=== PATIENT | female | born 1975 | race Caucasian/White ===

== ENCOUNTER 2016-04-23 12:04 | Outpatient (CLI) | payer OTHER ==
[~2016-04-23] VITALS: Ht 175.3 cm; Wt 119.5 kg
[2016-04-23 12:35] VITALS: Ht 175.3 cm; Wt 119.5 kg
[2016-04-23] MEDS ORDERED: METO10TA96 PO (12:35)
[2016-04-23] MEDS ORDERED: DOXY25TA44 PO (12:35)
[2016-04-23] MEDS ORDERED: RANI150T9 PO (12:35)
[2016-04-23] MEDS ORDERED: PRENAT PO (12:35)
[2016-04-23] MEDS ORDERED: ASPI81TA3 PO (12:35)
[2016-04-23 12:39] LABS: BASOPHILS % 0.3 % (0.0-2.0); EOSINOPHILS # 0.1 10^3/ul (0.0-0.5); EOSINOPHILS % 0.4 % (0.0-7.0); HEMATOCRIT 34.8 % (37.0-47.0); HEMOGLOBIN 12.2 g/dl (12.0-16.0); LYMPHOCYTES # 2.2 10^3/ul (0.8-2.9); LYMPHOCYTES % 15.9 % (15.0-51.0); MEAN CORPUSCULAR HEMOGLOBIN 32.7 pg (29.0-33.0); MEAN CORPUSCULAR HGB CONC 35.1 g/dl (32.0-37.0); MEAN CORPUSCULAR VOLUME 93.1 fl (82.0-101.0); MEAN PLATELET VOLUME 7.3 fl (7.4-10.4); MONOCYTE # 0.6 10^3/ul (0.3-0.9); NEUTROPHIL # 11.1 10^3/ul (1.6-7.5); NEUTROPHILS % 79.4 % (39.0-77.0); PLATELET COUNT 336 10^3/UL (140-440); RED BLOOD COUNT 3.74 10^6/ul (4.20-5.40); RED CELL DISTRIBUTION WIDTH 13.6 % (11.5-14.5)
[2016-04-23 12:46] LABS: CONDITION 1
[2016-04-23 12:49] LABS: ALBUMIN 3.3 g/dl (3.3-4.9)
[2016-04-23 12:50] LABS: INR 0.93; POTASSIUM 4.6 mmol/L (3.5-5.1); PROTIME 12.5 Sec (12.2-14.2)
[2016-04-23 12:51] LABS: PARTIAL THROMBOPLASTIN TIME 27.7 Sec (25.0-35.0)
[2016-04-23 12:52] LABS: CREATININE 0.61 mg/dl (0.44-1.00)
[2016-04-23 12:53] LABS: CALCIUM 9.1 mg/dl (8.4-10.2); TOTAL PROTEIN 6.6 g/dl (6.1-8.1)
--- NOTE | 2016-04-23 13:13 | RADRPT ---
PROCEDURE: US OB. CLINICAL INDICATION: demise , pain TECHNIQUE: Transabdominal views of the pelvis are available for review. COMPARISON: No prior studies are available for comparison. FINDINGS: There is a single intrauterine gestation in a vertex position. The heart tones are absent. RPTAT: AA IMPRESSION: demise in a vertex position. .Antolin Rothman MD, MD Date Time Electronically viewed and signed by .Antolin Rothman MD, on 04/23/2016 13:13 .S/
--- NOTE | 2016-04-23 14:02 | QN ---
Documentation Comment 40 y/o female here for demise at 29 weeks desires to have induction at home all labs are NL will start on Cytotec 50 per vagina Q 4 hrs until labor occurs re evaluate in 48 hrs RAMBO CASTRO MD Apr 23, 2016 14:02
== END 2016-04-23 14:20 | disposition home or self-care (01) ==
LOC: L-D 12:04 → OBT 12:04
PROVIDERS: ATTEND Obstetrics & Gynecology
DX: O36.4XX0 Maternal care for intrauterine death, not applicable or unspecified (principal); Z3A.29 29 weeks gestation of pregnancy
CPT/HCPCS: 36415; 76815; 80053; 85025; 85610; 85730; Z7500; G0463

== ENCOUNTER 2016-04-24 03:26 | Inpatient (IN) | payer OTHER ==
[~2016-04-24] VITALS: Ht 167.6 cm; Wt 110.0 kg
[~2016-04-24 03:26] MED LIST: ASPI81TA3 PO; DOXY25TA44 PO; METO10TA96 PO; PRENAT PO; RANI150T9 PO
[2016-04-24 03:33] VITALS: Ht 167.6 cm; Wt 110.0 kg
[2016-04-24] MEDS: LACTATED RINGER'S 1,000 ML IV SCH ×4 (03:55→09:16)
[2016-04-24] MEDS ORDERED: BUTORPHANOL 2 MG INJ IV PRN (04:00)
[2016-04-24] MEDS ORDERED: IBUPROFEN 600 MG TAB PO PRN ×2 (04:00→12:30)
[2016-04-24] MEDS ORDERED: METHYLERGONOVINE 0.2 MG INJ IM PRN ×3 (04:00→17:00)
[2016-04-24] MEDS ORDERED: MISOPROSTOL 200 MCG TAB PR PRN ×2 (04:00→12:30)
[2016-04-24] MEDS ORDERED: OXYTOCIN 30 UNITS/LR 500 ML IV PRN ×3 (04:00→17:00)
[2016-04-24] MEDS ORDERED: LACTATED RINGER'S 1,000 ML IV PRN (04:00)
[2016-04-24] MEDS ORDERED: LIDOCAINE 1% (MPF) 30 ML INJ INJ PRN (04:00)
[2016-04-24] MEDS ORDERED: ONDANSETRON 4 MG INJ IV PRN (04:00)
[2016-04-24] MEDS ORDERED: CARBOPROST 250 MCG INJ IM PRN ×2 (04:00→12:30)
[2016-04-24 04:16] VITALS: BP 134/65; RESP 20
[2016-04-24] MEDS ORDERED: FENTAnyl 2MCG/ML-ROPIV 0.2% 100 ML ONE (05:40)
[2016-04-24] MEDS ORDERED: METOCLOPRAMIDE 10 MG INJ IV SCH (06:30)
[2016-04-24] MEDS ORDERED: NALOXONE (0.4 MG/ML) INJ IV PRN (06:30)
[2016-04-24] MEDS ORDERED: FENTAnyl 2MCG/ML-ROPIV 0.2% 100 ML BAG EPI SCH (06:30)
[2016-04-24] MEDS ORDERED: ONDANSETRON 4 MG INJ IV ONE (06:30)
[2016-04-24 09:10] LABS: BARBITURATES NEGATIVE (NEGATIVE); BENZODIAZEPINES NEGATIVE (NEGATIVE); CANNABINOIDS POSITIVE (NEGATIVE); COCAINE NEGATIVE (NEGATIVE); OPIATES NEGATIVE (NEGATIVE)
[2016-04-24] MEDS ORDERED: OXYTOCIN 30 UNITS/LR 500 ML IV SCH ×2 (12:00→12:30)
[2016-04-24] MEDS ORDERED: LACTATED RINGER'S 1,000 ML IV* SCH (12:30)
[2016-04-24] MEDS ORDERED: ACETAMINOPHEN 500 MG TAB PO PRN (12:30)
--- NOTE | 2016-04-24 12:30 | LDN ---
Date/Time of Note Date/Time of Note DATE: 04/24/16 TIME: 12:14 Delivery Summary Laboratory Tests Test 04/24/16 04:00 04/24/16 07:00 Hepatitis B Surface Antigen NEGATIVE Urine Amphetamines Screen NEGATIVE Urine Barbiturates NEGATIVE Urine Benzodiazepines Screen NEGATIVE Urine Cannabinoids POSITIVE Urine Cocaine Screen NEGATIVE Urine Opiates Screen NEGATIVE Current Medications Medications (Trade) Dose Ordered Sig/Librado Route PRN Reason Start Time Stop Time Status Last Admin Dose Admin Lactated Ringer's (Lr) 1,000 ml @ 125 mls/hr Q8H IV 04/24/16 03:36 04/24/16 09:16 Butorphanol Tartrate (Stadol) 2 mg Q2H PRN IV PAIN 04/24/16 04:00 04/24/16 04:00 Lidocaine (Xylocaine 1% (Mpf)) 30 ml ONCE PRN INJ EPISIOTOMY/TEARING 04/24/16 04:00 Ibuprofen 600 mg 600 mg ONCE PRN PO Mild Pain (Pain Score 1-3) 04/24/16 04:00 Lactated Ringer's 1,000 ml @ 2,000 mls/hr Q30M PRN IV PRE-EPIDURAL BOLUS 04/24/16 04:00 Oxytocin/Lactated Ringer's 500 ml @ 0 mls/hr ONCE PRN IV For Hemorrhage Management 04/24/16 04:00 04/24/16 11:53 Methylergonovine Maleate (Methergine) 0.2 mg ONCE PRN IM VAGINAL BLEEDING 04/24/16 04:00 Carboprost Tromethamine (Hemabate) 250 mcg ONCE PRN IM VAGINAL BLEEDING 04/24/16 04:00 Misoprostol (Cytotec) 1,000 mcg ONCE PRN WA VAGINAL BLEEDING 04/24/16 04:00 Ondansetron HCl 4 mg 4 mg Q4H PRN IV NAUSEA AND/OR VOMITING 04/24/16 04:00 04/24/16 04:03 Fentanyl/ Ropivacaine 100 ml @ ud STK-MED ONCE .ROUTE 04/24/16 05:40 04/24/16 05:41 DC Naloxone HCl (Narcan) 0.2 mg Q2M PRN IV FOR RESP RATE 8 OR LESS 04/24/16 06:30 Fentanyl/ Ropivacaine 100 ml EPIDURAL (PCEA) EPI 04/24/16 06:30 Ondansetron HCl (Zofran Inj) 4 mg pre-procedure ONCE IV 04/24/16 06:30 04/24/16 06:31 DC 04/24/16 06:33 Metoclopramide HCl 10 mg 10 mg Q6 IV 04/24/16 06:30 04/24/16 06:28 Oxytocin/Lactated Ringer's 500 ml @ 125 mls/hr Q4H IV 04/24/16 12:00 UNV This patient is a 40 years old 6 para 0. SAB 4. TAB 2. With EDC of July 07, 2069. Which makes her now 29 weeks and 3 days she was diagnosed with demise on April 16, 2006. She came to the triage area yesterday after examination she was given Cytotec tablets to be taken as at home for induction of the contractions and delivery. Today at 2:00 in the morning she came in the delivery room with contractions and slight bleeding . Due to contraction epidural anesthesia was given She made progress and delivered at 11:06 AM today a fetus with 0 and 0 , female 3 pound and 6 ounces.There was tight nuchal cord The cord was cut and clamped and the placenta was delivered spontaneously. Placenta was sent for pathology she did not have much of the vaginal bleeding after Placenta Delivered: Spontaneously Meconium: none Perineum intact?: Yes Anesthesia type: Epidural Estimated blood loss: 100 Sponge & Needle done & correct: Yes All needle counts correct: Yes Any foreign bodies felt in the: No Problems: Delivery Information Sex Infant Sex: female Apgars 1 Minute: 0 Suctioning Nose & mouth suctioned at arthur: No Delee suction performed: No Umbilical Cord Umbilical cord with: 3 Vessels Cord presentations: nuchal cord Nuchal cord present X: 2 Cord Blood was obtained: Yes ADRIANNE NAPIER MD Apr 24, 2016 12:25
[2016-04-24] MEDS ORDERED: OXYCODONE/ASPIRIN (4.88/325) TAB PO PRN ×2 (17:00)
[2016-04-24] MEDS ORDERED: SENNA/DOCUSATE NA (8.6MG/50MG) TAB PO PRN (17:00)
[2016-04-24] MEDS ORDERED: WITCH HAZEL/GLYCERIN PAD PR PRN (17:00)
[2016-04-24] MEDS ORDERED: BENZOCAINE 20% 56 ML SPRAY TOP PRN (17:00)
[2016-04-24] MEDS ORDERED: DIBUCAINE 1% 30 GM OINT PR PRN (17:00)
[2016-04-24] MEDS ORDERED: LANOLIN 7 GM TUBE TOP PRN (17:00)
--- NOTE | 2016-04-24 18:51 | HP ---
Date/Time of Note Date/Time of Note DATE: 04/24/16 TIME: 18:45 OB - History Hx of Present Free Text/Dictation admitted C/O labor pains Had demise : decided to have Cytotec at home Chief Complaint: labor pains 29 weeks Estimated Due Date: Jul 07, 2016 : 7 Para: 0 Spontaneous : 4 Therapeutic : 2 Care: Limited Care Ultrasounds: Abnormal US findings ( demise ) Obstetrical Complications: Other Medical Complications: None, Other (geraldo disease ) Past Family/Social History * Past Medical, Surgical, Family and Obstetric Histories reviewed from chart. Blood Type: B+ Rubella: unknown RPR/VDRL: Negative OB Admission Exam Vital Signs Vital Signs Vital Signs Date Time Temp Pulse Resp B/P Pulse Ox O2 Delivery O2 Flow Rate FiO2 04/24/16 04:16 97.7 20 134/65 Physical Exam HEENT: WNL Heart: Rhythm Normal Lungs: Clear, Equal Abdomen: WNL Extremities: Normal Reflexes: Normal Cervical Dilatation: Fingertip Effacement: 0% Station: -3 Membranes: Intact Contractions on Admission: < 5 Minutes Apart Date/Time Contractions Began: 08/22/2016 Frequency of Contractions: q5 Duration: >3 min Intensity: Moderate OB Assessment/Plan Reason for admission: IUFD Other Assessment: 29 + weeks gestation labor pains RAMBO CASTRO MD Apr 24, 2016 18:51
--- NOTE | 2016-04-24 18:54 | DS ---
Date/Time of Note Date/Time of Note home next day DATE: 04/24/16 TIME: 18:52 Obstetrical Discharge Record Final Diagnosis Final Diagnosis: delivered Other Final Diagnosis see nurses notes Vaginal Delivery Obstetrical Delivery: Spontaneous Demise Demise: Antepartum Complications Induction: Yes Condition on Discharge Physical Assessment Last Vitals: see nurses notes Voiding: Yes Bowel Movement: Yes Breast: Soft, non-tender, Filling Fundus: Firm Abdomen and Incision: soft BS + Episiotomy: NA Calf Tenderness: No Patient Condition: Good RAMBO CASTRO MD Apr 24, 2016 18:54
--- NOTE | 2016-04-24 18:55 | PD.PPDC ---
[employer] Discharge Instruction Provider Information Physician Information 40 y/o female admitted with demise and had vaginal delivery Condition Patient Condition: Good Diet Diet: Resume Regular Diet Activity/Restrictions Activity: Normal Activity May Shower Restrictions: Nothing in the Vagina Return to Work or School: Jun 09, 2016 Follow-up Follow-up with Physician: 4, Week/Weeks (in clinic) Return to clinic for OB Instructions: Breast Tenderness Depression RAMBO CASTRO MD Apr 24, 2016 18:55
[2016-04-24] MEDS: CEPHALEXIN 500 MG CAP PO SCH (19:54)
[2016-04-24] MEDS: RANITIDINE 150 MG TAB PO SCH (21:41)
[2016-04-25] MEDS: CEPHALEXIN 500 MG CAP PO SCH ×2 (00:21→06:15)
[2016-04-25 05:56] LABS: ADD SCAN DIFF NO
[2016-04-25 05:58] LABS: BASOPHILS % 0.1 % (0.0-2.0); EOSINOPHILS # 0.1 10^3/ul (0.0-0.5); EOSINOPHILS % 0.6 % (0.0-7.0); HEMATOCRIT 32.7 % (37.0-47.0); HEMOGLOBIN 11.1 g/dl (12.0-16.0); LYMPHOCYTES # 2.7 10^3/ul (0.8-2.9); LYMPHOCYTES % 19.8 % (15.0-51.0); MEAN CORPUSCULAR HEMOGLOBIN 31.9 pg (29.0-33.0); MEAN CORPUSCULAR HGB CONC 33.9 g/dl (32.0-37.0); MEAN PLATELET VOLUME 9.4 fl (7.4-10.4); MONOCYTE # 0.7 10^3/ul (0.3-0.9); MONOCYTES % 5.3 % (0.0-11.0); NEUTROPHIL # 9.9 10^3/ul (1.6-7.5); NEUTROPHILS % 73.3 % (39.0-77.0); PLATELET COUNT 247 10^3/UL (140-415); RED BLOOD COUNT 3.48 10^6/ul (4.20-5.40); RED CELL DISTRIBUTION WIDTH 13.2 % (11.5-14.5); WHITE BLOOD COUNT 13.5 10^3/ul (4.8-10.8)
[2016-04-25] MEDS: RANITIDINE 150 MG TAB PO SCH (09:03)
[2016-04-25 13:24] LABS: RUBELLA ANTIBODY - IGG 1.63
[2016-04-26] MEDS ORDERED: DIPHTH/TET/ACEL PERTUSS (ADULT) 0.5 ML VIAL IM* ONE (09:00)
== END 2016-04-25 10:15 | disposition home or self-care (01) | DRG 775 ==
LOC: L-D 03:26 → OBG 16:34
PROVIDERS: ADMIT Obstetrics & Gynecology; ATTEND Obstetrics & Gynecology
DX: O60.14X0 Preterm labor third trimester with preterm delivery third trimester, not applicable or unspecified (principal); Z37.1 Single stillbirth; O09.523 Supervision of elderly multigravida, third trimester; Z3A.29 29 weeks gestation of pregnancy
CPT/HCPCS: 62319; 80307; 85025; 86592; 86762; 86850; 86900; 86901; 86920; 87340; 88307; J2405; J2590; J2765; J3010; J7120